=== PATIENT | female | born 1970 | race Caucasian/White ===

== ENCOUNTER 2022-01-13 05:43 | Emergency (ER) | payer SELFPAY ==
[~2022-01-13] VITALS: Ht 167.6 cm; Wt 91.0 kg
[2022-01-13] MEDS ORDERED: KETOROLAC 30MG/ML VIAL IV STA (06:56)
[2022-01-13 07:13] LABS: CHLORIDE 108 mEq/L (98-107)
[2022-01-13 07:16] LABS: PROTHROMBIN TIME 10.9 sec (9.6-11.0)
[2022-01-13 07:18] LABS: BASOPHILS % 1.1 % (0.0-2.0); EOSINOPHILS % 3.3 % (0.0-5.0); HEMATOCRIT. 41.7 % (36.0-48.0); HEMOGLOBIN. 14.2 g/dL (12.0-16.0); LYMPHOCYTES % 36.2 % (20.0-50.0); MEAN CORPUSCULAR HEMOGLOBIN 29.8 pg (28.0-32.0); MEAN CORPUSCULAR VOLUME 87.5 fL (81.0-99.0); MONOCYTES % 8.5 % (2.0-8.0); NEUTROPHILS % 50.9 % (40.0-76.0); RED BLOOD CELL COUNT 4.76 mill/uL (4.2-5.4); RED CELL DISTRIBUTION WIDTH 13.8 % (11.6-14.6)
[2022-01-13 08:19] VITALS: BP 156/74
[2022-01-13] MEDS ORDERED: MAGNESIUM/ALUMINUM HYDROXIDE/SIMETHICONE 30ML UDC PO PRN (13:45)
[2022-01-13] MEDS ORDERED: CLONIDINE 0.1MG TABLET PO PRN (13:45)
[2022-01-13] MEDS ORDERED: AMLODIPINE 10MG TABLET PO SCH (13:45)
[2022-01-13] MEDS ORDERED: GUAIFENESIN 200MG/10ML SUGAR FREE UDC PO PRN (13:45)
[2022-01-13] MEDS ORDERED: DOCUSATE SODIUM 100MG CAPSULE PO PRN (13:45)
[2022-01-13] MEDS ORDERED: ACETAMINOPHEN 325MG TABLET PO PRN (13:45)
[2022-01-13] MEDS ORDERED: ONDANSETRON HCL 4MG/2ML INJ IV PRN (13:45)
[2022-01-14] MEDS ORDERED: ASPIRIN 81MG EC TABLET PO SCH (09:00)
== END 2022-01-13 16:21 | disposition left against medical advice (07) ==
LOC: ER 05:43 → EDBEDREQTM 10:21 → CANBEDREQ 13:33 → ER 16:21
DX: G93.40 Encephalopathy, unspecified (principal); R53.1 Weakness; I10 Essential (primary) hypertension; J45.909 Unspecified asthma, uncomplicated
CPT/HCPCS: 36415; 70450; 71045; 80053; 82962; 83605; 84145; 84484; 85025; 85610; 87040; 93005; 96374; 99285; J1885; Z7610